=== PATIENT | female | born 1960 | race Caucasian/White ===

== ENCOUNTER 2016-06-03 19:32 | Inpatient (IN) | payer BC ==
--- NOTE | 2016-06-03 19:59 | UCPHY ---
H & P Time Seen by Provider: 06/03/16 19:58 Patient Type: New HPI/ROS: Chief complaint. Abdominal pain HPI. 48-year-old female presents with abdominal, vomiting diarrhea since last night. Slight bone stool especially when wiping her bottom after diarrhea. She tells me she is constipated for the last several weeks. She has achiness in both sides of her low abdomen. She feels weak. No fever. No chest discomfort shortness of breath. She has previously had blood in her stool and has had GI workup and was diagnosed with an ulcer. She was also seen 5 days ago for sinus infection started on Augmentin. She is visiting from [employer] Constitutional. Weakness Eyes. no problems with vision ENT. no sore throat, no nasal drainage Cardiovascular. no chest pain Respiratory. no shortness of breath, no cough Abdominal. Crampy lower abdominal pain with nausea vomiting and diarrhea. Blood that is described as bright red on toilet paper after stool . no problems urinating MS. no calf pain/swelling, no neck/back pain, no joint pain Skin. no rash Lymph. no swollen glands Neuro. no headache, no dizziness, no difficulty walking or with speech Past Medical/Surgical History: Dyslipidemia, peptic ulcer disease, IBS, hysterectomy Social History: , nonsmoker, no alcohol Physical Exam: General Appearance: Alert well-developed female mild distress vital signs are stable Eyes: Pupils equal and round no pallor or injection. ENT, Mouth: Mucous membranes are moist. Respiratory: There are no retractions, lungs are clear to auscultation. Cardiovascular: Regular rate and rhythm. Gastrointestinal: Abdomen is soft with some tenderness in the lower abdomen. No masses. Bowel sounds are normal Neurological: Awake and alert, sensory and motor exams grossly normal. Skin: Warm and dry, no rashes. Musculoskeletal: Neck is supple nontender. Extremities symmetrical, full range of motion. Psychiatric: Patient is oriented X 3, there is no agitation. Constitutional: Initial Vital Signs Temperature (C) 36.6 C 06/03/16 19:48 Heart Rate 75 06/03/16 19:48 Respiratory Rate 18 06/03/16 19:48 Blood Pressure 148/105 H 06/03/16 19:48 O2 Sat (%) 96 06/03/16 19:48 O2 Delivery Mode Room Air Allergies/Adverse Reactions: No Known Allergies Allergy (Unverified 06/03/16 19:45) Home Medications: Medication Instructions Recorded Amox-Clav 875-125 mg Tablet 06/03/16 LAMOTRIGINE 06/03/16 VENLAFAXINE HCL 06/03/16 Medical Decision Making - Diagnostics Imaging: Upright abdomen interpreted by me shows no evidence of free air or air-fluid levels. There is stool in the right ascending colon CT abdomen and pelvis with IV contrast reviewed and discussed with Dr. Villanueva shows a large area of circumferential colitis measuring 35 cm in the distal transverse and descending colon. There is circumferential wall thickening. No evidence of abscess or free air Procedures: IV normal saline. Zofran IV for nausea and vomiting. Imodium orally for diarrhea. IV Pepcid ED Course/Re-evaluation: Re-evaluation at 9:15 a.m.. Patient tells me she is having a lot of cramping and pain in her low abdomen. Morphine for pain is ordered. CT abdomen and pelvis are ordered Re-evaluation or return from CT at 10:00 p.m.. Patient is stable and feeling better. 10:15 p.m. I have discussed the imaging and laboratory findings with the patient. We discussed treatment plan including recommendation for admission. She expresses understanding and agreement I have consulted and discussed case with Dr. West, hospitalist, who agrees to the admission Differential Diagnosis: I considered appendicitis, diverticulitis, colitis - Data Points Laboratory Results: Laboratory Results 06/03/16 20:30 06/03/16 20:30 06/03/16 20:30 WBC 16.40 H 10^3/uL (3.80-9.50) RBC 4.95 10^6/uL (4.18-5.33) Hgb 14.1 g/dL (12.6-16.3) Hct 42.8 % (38.0-47.0) MCV 86.5 fL (81.5-99.8) MCH 28.5 pg (27.9-34.1) MCHC 32.9 g/dL (32.4-36.7) RDW 13.1 % (11.5-15.2) Plt Count 417 H 10^3/uL (150-400) MPV 10.1 fL (8.7-11.7) Neut % (Auto) 80.4 H % (39.3-74.2) Lymph % (Auto) 14.0 L % (15.0-45.0) [place] % (Auto) 4.9 % (4.5-13.0) Eos % (Auto) 0.2 L % (0.6-7.6) Baso % (Auto) 0.2 L % (0.3-1.7) Nucleat RBC Rel Count 0.0 % (0.0-0.2) Absolute Neuts (auto) 13.17 H 10^3/uL (1.70-6.50) Absolute Lymphs (auto) 2.30 10^3/uL (1.00-3.00) Absolute Monos (auto) 0.81 H 10^3/uL (0.30-0.80) Absolute Eos (auto) 0.04 10^3/uL (0.03-0.40) Absolute Basos (auto) 0.03 10^3/uL (0.02-0.10) Absolute Nucleated RBC 0.00 10^3/uL (0-0.01) Immature Gran % 0.3 % (0.0-1.1) Immature Gran # 0.05 10^3/uL (0.00-0.10) Sodium 142 mEq/L (134-144) Potassium 3.9 mEq/L (3.5-5.2) Chloride 102 mEq/L (97-110) Carbon Dioxide 25 mEq/l (22-31) Anion Gap 15 mEq/L (8-16) BUN 12 mg/dL (7-23) Creatinine 0.9 mg/dL (0.6-1.0) Estimated GFR > 60 Glucose 106 H mg/dL (70-100) Calcium 9.6 mg/dL (8.5-10.4) Medications Given: Discontinued Medications Sodium Chloride (Ns) 1,000 mls @ 0 mls/hr IV ONCE ONE PRN Reason: Wide Open Stop: 06/03/16 20:09 Last Admin: 06/03/16 21:06 Dose: 1,000 mls Famotidine 20 mg/ Sodium (Chloride) 102 mls @ 408 mls/hr IV EDNOW ONE Stop: 06/03/16 20:22 Last Admin: 06/03/16 21:04 Dose: 102 mls Loperamide HCl (Imodium) 4 mg PO EDNOW ONE Stop: 06/03/16 20:10 Last Admin: 06/03/16 21:06 Dose: 4 mg Morphine Sulfate (Morphine) 6 mg IVP EDNOW ONE Stop: 06/03/16 21:18 Last Admin: 06/03/16 21:29 Dose: 6 mg Ondansetron HCl (Zofran) 4 mg IVP EDNOW ONE Stop: 06/03/16 20:09 Last Admin: 06/03/16 21:06 Dose: 4 mg Departure - Departure Disposition: [facility] Inpatient Acute Clinical Impression: Non-specific colitis Condition: Fair - PQRS PQRS Measurement: 134: Depression screening and followup, PRIME MD-PHQ2 (12 years and older) Over the last 2 weeks, how often have you been bothered by any of the following problems? 1. Feeling down, depressed, or hopeless? 2. Little interest or pleasure in doing things? Patient answered no to both 1 and 2 130: Documentation of medications. Reviewed all patient medications, doses, route and frequency. 226: Do you smoke? No.
[2016-06-03] MEDS ORDERED: FAMOTIDINE 20 MG in NS 100 ML IV ONE (20:08)
[2016-06-03] MEDS ORDERED: NS 1,000 ML IV ONE (20:08)
[2016-06-03] MEDS ORDERED: ONDANSETRON 4 MG/2 ML VIAL IVP ONE (20:08)
[2016-06-03] MEDS ORDERED: LOPERAMIDE HCL 2 MG CAP PO ONE (20:09)
--- NOTE | 2016-06-03 20:31 | DX ---
Single view abdomen 2015 hour History: Abdominal pain, nausea. Findings: Upright view abdomen demonstrates moderate stool in the right colon. No bowel obstruction. No significant air-fluid levels. Calcifications in the region of the pancreas. No organomegaly. Impression: 1. Mild constipation. 2. No bowel obstruction or pneumoperitoneum. 3. Pancreatic calcifications suggesting chronic pancreatitis.
[2016-06-03 20:43] LABS: % IMMATURE GRANULYOCYTES 0.3 % (0.0-1.1); ABSOLUTE IMMATURE GRANULOCYTES 0.05 10^3/uL (0.00-0.10); ADD DIFF? NO; ADD MORPH? NO; ADD SCAN? NO; ATYPICAL LYMPHOCYTE FLAG 0 (0-99); FRAGMENT RBC FLAG 0 (0-99); HEMATOCRIT 42.8 % (38.0-47.0); HEMOGLOBIN 14.1 g/dL (12.6-16.3); LEFT SHIFT FLG 0 (0-99); LIPEMIA HEMOLYSIS FLAG 80 (0-99); MEAN CELL HEMOGLOBIN 28.5 pg (27.9-34.1); MEAN CELL HEMOGLOBIN CONCENTR. 32.9 g/dL (32.4-36.7); MEAN CELL VOLUME 86.5 fL (81.5-99.8); MEAN PLATELET VOLUME 10.1 fL (8.7-11.7); PLATELET CLUMPS FLAG 0 (0-99); PLATELET COUNT 417 10^3/uL (150-400); RED BLOOD CELL COUNT 4.95 10^6/uL (4.18-5.33); RED CELL DISTRIBUTION WIDTH 13.1 % (11.5-15.2)
[2016-06-03] MEDS ORDERED: NS 100 ML BAG IV ONE (20:46)
[2016-06-03 20:54] LABS: ANION GAP 15 mEq/L (8-16); CALCIUM 9.6 mg/dL (8.5-10.4); CARBON DIOXIDE 25 mEq/l (22-31); CHLORIDE 102 mEq/L (97-110); CREATININE 0.9 mg/dL (0.6-1.0); GLOMERULAR FILTRATION RATE > 60; GLUCOSE 106 mg/dL (70-100); POTASSIUM 3.9 mEq/L (3.5-5.2); SODIUM 142 mEq/L (134-144)
[2016-06-03] MEDS ORDERED: IOPAMIDOL (ISOVUE-300) 100 ML BTL IV ONE (21:21)
--- NOTE | 2016-06-03 22:15 | CT ---
CT Scan of the Abdomen and Pelvis (With Contrast) 2145 hours History: Lower abdominal pain. Technique: Axial computed tomographic images of the abdomen and pelvis were obtained with the unevent ful intravenous administration of 90 mL Isovue-300 contrast. No oral or rectal contrast which limits the study. Dose reduction techniques were utilized. CT Abdomen Findings: Lung bases: Normal. Liver: Normal. Biliary system: No obstruction. Spleen: Normal. Pancreas: Normal. Adrenals: Calcification nodular thickening of the right adrenal gland is nodular thickening left adre nal gland probably benign. Kidneys: No obstruction or solid masses. Abdominal Aorta: No aneurysm. Circumferential wall thickening of the distal transverse and descending colon extending for least 35 cm probably representing infectious/inflammatory colitis versus or bulge of colitis. No drainable abs cess or bowel obstruction. Superior mesenteric artery and inferior mesenteric artery appear patent. N o pneumoperitoneum. CT Pelvis Findings: Appendix appears normal without inflammatory changes. Rectosigmoid colon appears normal. Moderate degenerative disk disease lumbar spine L4-L5 through Impression: 1. Circumferential wall thickening of the distal transverse and descending colon probably representin g infectious/inflammatory colitis versus ulcerative colitis . Recommend followup colonoscopy. Ischemi c colitis is less likely. 2. Calcification and nodular thickening of right adrenal gland probably from prior trauma or benign p rocess. 3. No evidence of appendicitis. Findings and recommendations discussed with Emergency Department physician, Dr. Morris Lamb at 2205 hour, today. Final report concurs with initial preliminary interpretation.
[2016-06-04] MEDS ORDERED: ONDANSETRON 4 MG/2 ML VIAL IVP PRN (00:07)
[2016-06-04] MEDS ORDERED: LORazepam 0.5 MG TAB PO PRN (00:07)
[2016-06-04] MEDS ORDERED: ONDANSETRON DISINTEGRATING 4 MG TAB PO PRN (00:07)
[2016-06-04] MEDS ORDERED: HYDROCODONE/APAP 5/325 TAB PO PRN (00:07)
[2016-06-04] MEDS: NS 1,000 ML IV SCH ×3 (00:56→23:50)
[2016-06-04] MEDS: CIPROFLOXACIN 400 MG/DEXTROSE 200 ML IV SCH ×2 (00:57→12:58)
[2016-06-04] MEDS: PANTOPRAZOLE SODIUM 40 MG in NS 100 ML IV SCH ×2 (00:58→10:41)
--- NOTE | 2016-06-04 01:28 | PDGENHP ---
History and Physical - Chief Complaint bloody diarrhea - History of Present Illness Patient is a 48-year-old female with history of depression, hyperlipidemia who presents to the [facility] complaining of abdominal cramping and diarrhea. Patient states that at around 2:00 a.m. on 06/03 she woke with intense cramping along her lower abdomen and urgency to have a bowel movement. She received have a bowel movement which she describes as initially firm followed by soft and then diarrheal stool. Toward the end of her bowel movements still became lined with small amounts of bright red blood. The cramping continued throughout the night and she had 3 additional bloody diarrheal stools until about 7:00 a.m. on 06/03. Since then she has not had a repeat bowel movement, but continues to have cramping abdominal pain. On day of presentation she has been unable to take any p.o. intake due to nausea, but denies any vomiting. She also reports subjective chills throughout the day. Of note patient was recently diagnosed with sinusitis and was started on Augmentin on 05/29 and had been taking that until it yesterday. She does report being told in young adulthood that she had IBS, but states this had been a problem for in many years. Last colonoscopy was about 3 years ago and normal. She does also have a history of upper GI bleed due to peptic ulcer disease about 2 years ago, but has not had any problems since that time. On arrival to the Urgent Care, patient had a low-grade temperature but was hemodynamically stable. Labs revealed leukocytosis, normal BMP. CT abdomen and pelvis was obtained and revealed colitis of the distal transverse and descending colon. Pt was then transferred to [facility] for admission. History Information - Allergies/Home Medication List Allergies/Adverse Reactions: No Known Allergies Allergy (Unverified 06/03/16 19:45) Home Medications: Amox-Clav 875-125 mg Tablet 06/03/16 [Last Taken Unknown] LAMOTRIGINE 06/03/16 [Last Taken Unknown] VENLAFAXINE HCL 06/03/16 [Last Taken Unknown] I have personally reviewed and updated: family history, medical history, social history, surgical history - Past Medical History Additional medical history: Depression (well controlled). HLD - Surgical History Additional surgical history: hysterectomy. appendectomy - Family History Positive for: non-pertinent (pt adopted) - Social History Smoking Status: Never smoked Alcohol Use: None Drug Use: None Additional social history: Patient is originally from [place] [facility], currently lives in [place] [facility]. Has been visiting her daughter here in [place] for past 2 weeks. Is retired. Review of Systems ROS: 10pt was reviewed & negative except for what was stated in HPI & below Physical Exam Temp Pulse Resp BP Pulse Ox 36.9 C 81 16 132/83 H 94 06/03/16 23:32 06/03/16 23:32 06/03/16 23:32 06/03/16 23:32 06/03/16 23:32 O2 (L/minute) 2 Constitutional: no apparent distress, appears nourished, not in pain Eyes: PERRL, anicteric sclera, EOMI Ears, Nose, Mouth, Throat: hearing normal, ears appear normal, no oral mucosal ulcers, dry mucous membranes Cardiovascular: regular rate and rhythym, no murmur, rub, or gallop, pulses symmetric bilaterally, No JVD, No edema Peripheral Pulses: 2+: dorsalis-pedis (R), dorsalis-pedis (L) Respiratory: no respiratory distress, no rales or rhonchi, clear to auscultation Gastrointestinal: normoactive bowel sounds, no palpable masses, other (soft, slight tenderness to palpation in suprapubic/LUQ), No guarding, No rebound Genitourinary: no bladder fullness, no bladder tenderness Skin: warm, normal color, no rashes or abrasions, no fluctuance, no induration, No mottled Musculoskeletal: full muscle strength, no muscle tenderness, normal joint ROM, no joint effusions Neurologic: AAOx3, sensation intact bilaterally, CN II-XII Intact, No weakness, No numbness Psychiatric: interacting appropriately, not anxious, not encephalopathic, thought process linear Lab Data & Imaging Review 06/03/16 20:30 06/03/16 20:30 WBC 16.40 10^3/uL (3.80-9.50) H 06/03/16 20:30 RBC 4.95 10^6/uL (4.18-5.33) 06/03/16 20:30 Hgb 14.1 g/dL (12.6-16.3) 06/03/16 20:30 Hct 42.8 % (38.0-47.0) 06/03/16 20:30 MCV 86.5 fL (81.5-99.8) 06/03/16 20:30 MCH 28.5 pg (27.9-34.1) 06/03/16 20:30 MCHC 32.9 g/dL (32.4-36.7) 06/03/16 20:30 RDW 13.1 % (11.5-15.2) 06/03/16 20:30 Plt Count 417 10^3/uL (150-400) H 06/03/16 20:30 MPV 10.1 fL (8.7-11.7) 06/03/16 20:30 Neut % (Auto) 80.4 % (39.3-74.2) H 06/03/16 20:30 Lymph % (Auto) 14.0 % (15.0-45.0) L 06/03/16 20:30 [place] % (Auto) 4.9 % (4.5-13.0) 06/03/16 20:30 Eos % (Auto) 0.2 % (0.6-7.6) L 06/03/16 20:30 Baso % (Auto) 0.2 % (0.3-1.7) L 06/03/16 20:30 Nucleat RBC Rel Count 0.0 % (0.0-0.2) 06/03/16 20:30 Absolute Neuts (auto) 13.17 10^3/uL (1.70-6.50) H 06/03/16 20:30 Absolute Lymphs (auto) 2.30 10^3/uL (1.00-3.00) 06/03/16 20:30 Absolute Monos (auto) 0.81 10^3/uL (0.30-0.80) H 06/03/16 20:30 Absolute Eos (auto) 0.04 10^3/uL (0.03-0.40) 06/03/16 20:30 Absolute Basos (auto) 0.03 10^3/uL (0.02-0.10) 06/03/16 20:30 Absolute Nucleated RBC 0.00 10^3/uL (0-0.01) 06/03/16 20: Immature Gran % 0.3 % (0.0-1.1) 06/03/16 20:30 Immature Gran # 0.05 10^3/uL (0.00-0.10) 06/03/16 20:30 Sodium 142 mEq/L (134-144) 06/03/16 20:30 Potassium 3.9 mEq/L (3.5-5.2) 06/03/16 20:30 Chloride 102 mEq/L (97-110) 06/03/16 20:30 Carbon Dioxide 25 mEq/l (22-31) 06/03/16 20:30 Anion Gap 15 mEq/L (8-16) 06/03/16 20:30 BUN 12 mg/dL (7-23) 06/03/16 20:30 Creatinine 0.9 mg/dL (0.6-1.0) 06/03/16 20:30 Estimated GFR > 60 06/03/16 20:30 Glucose 106 mg/dL (70-100) H 06/03/16 20:30 Calcium 9.6 mg/dL (8.5-10.4) 06/03/16 20:30 Visualized and Interpreted imaging results: Yes Interpretation: CT abd/pelvis: colitis of distal transverse and descending colon Assessment & Plan Assessment: Patient is a 56-year-old female with a history hyperlipidemia who presents to the ED with abdominal pain, bloody diarrhea after recent antibiotic use. CT abdomen and pelvis reveals acute colitis, likely infectious in etiology. Plan: # acute colitis Etiology likely infectious given leukocytosis, low-grade temp and given patient' s recent antibiotic use, C diff colitis is on the differential. Patient has not had repeat bowel movement since 06/03. Will obtained next possible stool sample and start antibiotics. - contact precautions - check c diff, stool O/P, stool culture - start Cipro 400 mg q12h, Metronidazole 500 mg q8h - IVF hydration: NS @100 cc/hr - anti-emetics prn, PPI # HLD Confirm and cont home meds. # depression Stable. Cont home meds. # dispo: admit to inpt service for > 2 [place] stay # gen clear liquid diet DVT ppx: SCDs Full code
[2016-06-04 05:42] LABS: % IMMATURE GRANULYOCYTES 0.4 % (0.0-1.1); ABSOLUTE IMMATURE GRANULOCYTES 0.06 10^3/uL (0.00-0.10); ADD DIFF? NO; ADD MORPH? NO; ADD SCAN? NO; ATYPICAL LYMPHOCYTE FLAG 10 (0-99); FRAGMENT RBC FLAG 0 (0-99); HEMATOCRIT 39.1 % (38.0-47.0); HEMOGLOBIN 12.6 g/dL (12.6-16.3); LEFT SHIFT FLG 10 (0-99); LIPEMIA HEMOLYSIS FLAG 80 (0-99); MEAN CELL HEMOGLOBIN 28.8 pg (27.9-34.1); MEAN CELL HEMOGLOBIN CONCENTR. 32.2 g/dL (32.4-36.7); MEAN CELL VOLUME 89.5 fL (81.5-99.8); MEAN PLATELET VOLUME 10.1 fL (8.7-11.7); PLATELET CLUMPS FLAG 0 (0-99); PLATELET COUNT 302 10^3/uL (150-400); RED BLOOD CELL COUNT 4.37 10^6/uL (4.18-5.33); RED CELL DISTRIBUTION WIDTH 13.1 % (11.5-15.2)
[2016-06-04 05:47] LABS: COLOR PALE YELLOW; LEUKOCYTE ESTERASE,URINE NEGATIVE (NEGATIVE); NITRITE,URINE NEGATIVE (NEGATIVE)
[2016-06-04 05:55] LABS: ALANINE AMINOTRANSFERASE 30 IU/L (9-52); ALBUMIN 3.3 g/dL (3.5-5.0); ALKALINE PHOSPHATASE 61 IU/L (38-126); ANION GAP 11 mEq/L (8-16); ASPARTATE AMINOTRANSFERASE 19 IU/L (14-46); BILIRUBIN,TOTAL 0.6 mg/dL (0.1-1.4); CALCIUM 8.5 mg/dL (8.5-10.4); CARBON DIOXIDE 25 mEq/l (22-31); CHLORIDE 107 mEq/L (97-110); CREATININE 0.8 mg/dL (0.6-1.0); GLOMERULAR FILTRATION RATE > 60; GLUCOSE 98 mg/dL (70-100); MAGNESIUM 2.1 mg/dL (1.6-2.3); POTASSIUM 3.7 mEq/L (3.5-5.2); SODIUM 143 mEq/L (134-144)
[2016-06-04 06:07] LABS: INR 1.05 (0.83-1.16); PROTIME(PATIENT) 13.6 SEC (12.0-15.0)
[2016-06-04 06:08] LABS: APTT 30.9 SEC (23.0-38.0)
--- NOTE | 2016-06-04 10:10 | HOSPPROG ---
Hospitalist Progress Note Assessment/Plan: Assessment: Patient is a 56-year-old female with a history hyperlipidemia who presents to the ED with abdominal pain, bloody diarrhea after recent antibiotic use. CT abdomen and pelvis reveals acute colitis, likely infectious in etiology. Plan: # acute colitis likely infectious given leukocytosis, low-grade temp and given patient's recent antibiotic use, C diff colitis is on the differential. No BM since admission -DC empiric antibiotics -await stool studies # HLD Confirm and cont home meds. # depression Stable. Cont home meds. # dispo: admit to inpt service for > 2 [place] stay # gen clear liquid diet DVT ppx: SCDs Full code Subjective: no bm since admission. afraid to eat. reports abd discomfort. no fever or chills Objective: Vital Signs Temp Pulse Resp BP Pulse Ox 36.8 C 85 16 113/67 97 06/04/16 08:17 06/04/16 08:17 06/04/16 08:17 06/04/16 08:17 06/04/16 08:17 Laboratory Results 06/04/16 05:16 06/04/16 05:16 06/03/16 06/04/16 06/05/16 05:59 05:59 05:59 Intake Total 2100 Output Total 600 Balance 1500 PT 13.6 SEC (12.0-15.0) 06/04/16 05:16 INR 1.05 (0.83-1.16) 06/04/16 05:16 ct scan abd/pelvis reviewed - Physical Exam Constitutional: no apparent distress, appears nourished, not in pain Ears, Nose, Mouth, Throat: moist mucous membranes, hearing normal, ears appear normal, no oral mucosal ulcers Cardiovascular: regular rate and rhythym, no murmur, rub, or gallop Respiratory: no respiratory distress, no rales or rhonchi, clear to auscultation Gastrointestinal: normoactive bowel sounds, soft, non-tender abdomen, no palpable masses, No guarding, No rebound, No distension Skin: no rashes or abrasions, no fluctuance, no induration Neurologic: AAOx3, CN II-XII Intact, No facial droop ICD10 Worksheet Patient Problems: Problems Problem Status Diagnosed Colitis Acute
[2016-06-04] MEDS: VENLAFAXINE XR 150 MG CAP PO SCH (10:41)
[2016-06-04] MEDS: lamoTRIgine 100 MG TAB PO SCH (10:41)
[2016-06-04] MEDS: ACETAMINOPHEN 325 MG TAB PO PRN (17:04)
[2016-06-04] MEDS ORDERED: NON-FORMULARY NEW DRUG (Simvastatin [Zocor] 80 MG) PO SCH (21:00)
[2016-06-04] MEDS ORDERED: ATORVASTATIN CALCIUM 40 MG TAB PO SCH (21:00)
[2016-06-05 05:56] VITALS: O2SAT 92
[2016-06-05 08:21] VITALS: BP 117/80; PULSE 80; RESP 18; TEMP 98.5
[2016-06-05] MEDS: VENLAFAXINE XR 150 MG CAP PO SCH (08:35)
[2016-06-05] MEDS: lamoTRIgine 100 MG TAB PO SCH (08:35)
[2016-06-05] MEDS ORDERED: Herbals/Supplements -Info Only PO SCH (09:00)
[2016-06-05] MEDS: ACETAMINOPHEN 325 MG TAB PO PRN (09:09)
[2016-06-05] MEDS: PANTOPRAZOLE SODIUM 40 MG in NS 100 ML IV SCH (09:10)
[2016-06-05] MEDS ORDERED: DOXYCYCLINE HYCLATE 100 MG CAP/TAB PO SCH (11:30)
--- NOTE | 2016-06-05 11:50 | GDS ---
[f rep st] DISCHARGE SUMMARY DISCHARGE DIAGNOSIS: 1. Resolved diarrhea, likely due to acute colitis in the setting of adverse effect to Augmentin vers us Clostridium difficile, now resolved. 2. Hyperlipidemia. 3. Depression. 4. Acute bacterial sinusitis. HOSPITAL COURSE AND STAY, BY PROBLEM: 1. Acute colitis: The patient was admitted to the hospital, where she was initially treated with IV Cipro and metronidazole. Since being in the hospital, the patient has not had a bowel movement. Sh david is now tolerating a regular diet. She denies any abdominal pain. Stool for C difficile was ordere d, but has not been sent since the patient has not had any further bowel movements. On the morning o f 06/05/2016, the patient feels better and is agreeable to be discharged home. If she does have a st ool prior to discharge, she will need followup of her stool studies to ensure she does not have C dif ficile since she is certainly at risk being on Augmentin. 2. Acute bacterial sinusitis: The patient's antibiotics were stopped yesterday. Today, she reports worsening sinus congestion, which has been going on for about 2 weeks. She denies any fevers. She reports purulent nasal discharge. Will give her a prescription for doxycycline to be taken for [facility] er 7 days given that the Augmentin could possibly be responsible for her colitis. 3. Depression: The patient states that since being in the hospital she has felt rather down. She d enies any suicidal or homicidal ideation. DISCHARGE PHYSICAL EXAMINATION: VITAL SIGNS: Blood pressure 117/80, pulse 80, respiratory rate 18, O2 saturation 92% on room air, temperature afebrile. GENERAL: No acute distress. ABDOMEN: Soft, n ontender, nondistended. No guarding or rebound tenderness. Normoactive bowel sounds. PERTINENT LABS AND STUDIES: CT of the abdomen done 06/03/2016 revealed circumferential wall thickeni ng of the distal transverse and descending colon, probably representing infectious versus inflammator y colitis. DISCHARGE MEDICATIONS: Please refer to discharge medication reconciliation in [facility] for full deta ils. Below is a preliminary list. New medications on hospital discharge: Doxycycline 100 mg p.o. twice daily for 7 days. DISCHARGE INSTRUCTIONS: The patient will be discharged from the hospital, where she should seek [facility] attention if she continues to have diarrhea or is unable the eat. The patient is visiting and sh ould possibly follow up with a supervisor sheet manufacturing upon returning home to consider colonoscopy if her symptoms are not improving. /[id number]/MODL
[2016-06-06] MEDS ORDERED: PANTOPRAZOLE SODIUM 40 MG TAB PO SCH (09:00)
== END 2016-06-05 16:07 | disposition home or self-care (01) | DRG 392 ==
LOC: CED 19:32 → CEDHOLD 22:21 → OBSVTOIN 22:21 → F1N 23:09
PROVIDERS: ADMIT Internal Medicine; ATTEND Internal Medicine
DX: K52.9 Noninfective gastroenteritis and colitis, unspecified (principal); E78.5 Hyperlipidemia, unspecified; F32.9 Major depressive disorder, single episode, unspecified; J01.90 Acute sinusitis, unspecified
CPT/HCPCS: 74000-PO; 74177-PO; 80048-PO; 85025-PO; 96361-PO; 96365-PO; 96374-PO; 96375-PO; G0463-PO; J0744; J2405; Q9967

== ENCOUNTER 2017-11-17 17:37 | Emergency (ER) | payer BC ==
[2017-11-17] MEDS ORDERED: NS 1,000 ML IV ONE (18:16)
--- NOTE | 2017-11-17 18:16 | EDPHY ---
H & P Time Seen by Provider: 11/17/17 17:51 HPI/ROS: 57-year-old female presents complaining of fall from a [place]ock landing on the crossbar underneath the [place]ock with a direct blow to her mid back now with pain in her back and right lower back as well. No numbness or tingling in her extremities, no loss of bowel or bladder control. Review of systems As per HPI General no fever no chills no weakness HEENT no eye pain no eye discharge. No eye redness, no sore throat Respiratory no cough, no shortness of breath Cardiac no chest pain, no peripheral edema GI no abdominal pain, no diarrhea, no constipation, no nausea, no vomiting no flank pain, no hematuria, no dysuria Musculoskeletal positive myalgias, no joint pain Heme no easy bruising, no easy bleeding Endo no polyuria, no polydipsia Skin no rashes, no pruritus Neuro no syncope, no dizziness, no headaches Psych is no suicidal ideation, no homicidal ideation Past Medical/Surgical History: Depression Social History: Denies alcohol or drug use Lives near [facility] Smoking Status: Never smoked Physical Exam: 57-year-old female alert and oriented in moderate to severe distress secondary to back pain and right lower back muscle spasm Vital signs stable, afebrile Atraumatic normocephalic, Extraocular muscles intact, anicteric Mucosa moist Neck is supple no posterior cervical midline tenderness, no swelling no ecchymosis no JVD Lungs clear to auscultation bilaterally Heart regular rate and rhythm Abdomen nondistended, bowel sounds present, soft, nontender no pulsatile mass Back no step-offs Positive ecchymosis at mid back approximately T10 through L2, just to the right of midline Positive right paralumbar tenderness to palpation Extremities no cyanosis clubbing or edema Neuro Sensation intact, motor intact, deep tendon reflexes bilateral knees normal gait intact Constitutional: Initial Vital Signs Temperature (C) 36.9 C 11/17/17 17:46 Heart Rate 73 11/17/17 17:46 Respiratory Rate 18 11/17/17 17:46 Blood Pressure 140/99 H 11/17/17 17:46 O2 Sat (%) 98 11/17/17 17:46 O2 Delivery Mode Room Air Allergies/Adverse Reactions: No Known Allergies Allergy (Unverified 06/03/16 19:45) Home Medications: Medication Instructions Recorded Venlafaxine Xr [Effexor Xr 75MG 300 mg PO DAILY 06/03/16 (*)] lamoTRIgine [LamICTAL 100 MG (*)] 200 mg PO DAILY 06/03/16 Diazepam [Valium 5 MG (*)] 5 mg PO TID PRN #21 tab 11/17/17 Docusate Sodium [Colace 100 MG (*)] 100 mg PO BID #60 cap 11/17/17 Lidocaine [Lidoderm] 1 each TP DAILY 15 Days #15 11/17/17 adh..patch Risperidone 11/17/17 oxyCODONE/APAP 5/325 [Percocet 1 tab PO Q6 PRN #28 tab 11/17/17 5/325 (*)] Medical Decision Making - Diagnostics Imaging Results: Imaging Impressions Lumbar Spine CT 11/17/17 18:20 Impression: 1. Thoracic spine for fracture. 2. See above report for additional findings. CT Lumbar Spine Without Contrast History: Pain following trauma. Technique: Spiral noncontrast acquisition was performed through the lumbar spine with reformations performed at 1 mm thickness.. Soft tissue and bone window evaluation is performed. Sagittal and coronal reconstructions are obtained utilizing soft tissue and bone window computer analysis modes. Dose reduction techniques were utilized. Findings: The bone alignment is normal. Vertebral body heights are well- maintained. There is a mildly displaced fracture involving the transverse process of L1 on the right side. Additionally, there may be an essentially undisplaced fracture of the transverse process of T12. No other fracture is identified. The paravertebral soft tissues appear normal. Degenerative changes are noted with facet hypertrophy extending from L2-L3 to the L5-S1 level. Disk space loss is also noted most pronounced at L4-L5 where there is a vacuum disk phenomenon. Hypertrophic degenerative changes at the C3-C4 level result in probable borderline canal stenosis. Impression: 1. Negative for vertebral body fracture. There is a minimally displaced fracture of the right transverse process of L1 and equivocal undisplaced fracture of the transverse process of T12. 2. Multilevel degenerative changes are noted as detailed above. Results called and discussed with Yvonne Cabrales MD on 11/17/2017 at 20:15. Thoracic Spine CT 11/17/17 18:20 Impression: 1. Thoracic spine for fracture. 2. See above report for additional findings. CT Lumbar Spine Without Contrast History: Pain following trauma. Technique: Spiral noncontrast acquisition was performed through the lumbar spine with reformations performed at 1 mm thickness.. Soft tissue and bone window evaluation is performed. Sagittal and coronal reconstructions are obtained utilizing soft tissue and bone window computer analysis modes. Dose reduction techniques were utilized. Findings: The bone alignment is normal. Vertebral body heights are well- maintained. There is a mildly displaced fracture involving the transverse process of L1 on the right side. Additionally, there may be an essentially undisplaced fracture of the transverse process of T12. No other fracture is identified. The paravertebral soft tissues appear normal. Degenerative changes are noted with facet hypertrophy extending from L2-L3 to the L5-S1 level. Disk space loss is also noted most pronounced at L4-L5 where there is a vacuum disk phenomenon. Hypertrophic degenerative changes at the C3-C4 level result in probable borderline canal stenosis. Impression: 1. Negative for vertebral body fracture. There is a minimally displaced fracture of the right transverse process of L1 and equivocal undisplaced fracture of the transverse process of T12. 2. Multilevel degenerative changes are noted as detailed above. Results called and discussed with Yvonne Cabrales MD on 11/17/2017 at 20:15. ED Course/Re-evaluation: Patient seen and evaluated for back pain following a fall out of a Hammock. No neurologic deficit CT thoracic and lumbar spine- Positive transverse process fracture at T12, L1 Patient given Toradol 15 mg IV push, Fentanyl 50 mcg IVP, Normal Saline 1 liter Lidoderm patch placed Pt got marked relief from these medications though continued to have some muscle spasm right paralumbar area. Imp Transverse process fracture L1, T12 Plan Discharge home Symptomatic/supportive care Diazepam, Percocet, Lidoderm Consider TENS unit for muscle spasm f/u pcp as soon as you return to [place] Differential Diagnosis: Differential diagnosis considered but not limited to: Vertebral fracture, compression fracture, spinous process fracture, transverse process fracture, back sprain, lumbar contusion, muscle spasm - Data Points Laboratory Results: 11/17/17 18:41 POC Sodium 140 mEq/L mEq/L (135-145) POC Potassium 3.6 mEq/L mEq/L (3.3-5.0) POC Chloride 102.0 mEq/L mEq/L (97-110) POC Total CO2 27 mEq/L mEq/L (22-31) POC BUN 9 mg/dL mg/dL (7-23) POC Creatinine 1.1 mg/dL H mg/dL (0.6-1.0) POC Glucose 87 mg/dL mg/dL (70-100) POC Calcium 9.8 mg/dL mg/dL (8.5-10.4) Medications Given: Discontinued Medications Diazepam (Valium 5 Mg Prepack#4) 1 btl TAKEHOME EDNOW ONE Stop: 11/17/17 20:42 Last Admin: 11/17/17 20:55 Dose: 1 btl Fentanyl (Sublimaze) 50 mcg IVP EDNOW ONE Stop: 11/17/17 18:18 Last Admin: 11/17/17 18:40 Dose: 50 mcg Sodium Chloride (Ns) 1,000 mls @ 0 mls/hr IV ONCE ONE PRN Reason: Wide Open Stop: 11/17/17 18:17 Last Admin: 11/17/17 18:43 Dose: 1,000 mls Ketorolac Tromethamine (Toradol) 15 mg IVP EDNOW ONE Stop: 11/17/17 18:18 Last Admin: 11/17/17 18:47 Dose: 15 mg Miscellaneous Medication (Icy Hot Lidocaine/Menthol 4%/1% Patch) 1 patch TD EDNOW ONE Stop: 11/17/17 20:45 Last Admin: 11/17/17 20:57 Dose: 1 patch Oxycodone/Acetaminophen (Percocet 5/325mg Prepack#4) 1 btl TAKEHOME EDNOW ONE Stop: 11/17/17 20:41 Last Admin: 11/17/17 20:56 Dose: 1 btl Point of Care Test Results: Chemistry 11/17/17 18:41 POC Sodium 140 mEq/L mEq/L (135-145) POC Potassium 3.6 mEq/L mEq/L (3.3-5.0) POC Chloride 102.0 mEq/L mEq/L (97-110) POC Total CO2 27 mEq/L mEq/L (22-31) POC BUN 9 mg/dL mg/dL (7-23) POC Creatinine 1.1 mg/dL H mg/dL (0.6-1.0) POC Glucose 87 mg/dL mg/dL (70-100) POC Calcium 9.8 mg/dL mg/dL (8.5-10.4) Urine Dip Specific [place] (1.002-1.030) 1.015 PH (5.0-7.5) 7.0 Leukocytes (Negative) 3+ Nitrites (Negative) Negative Protein (Negative) Negative Glucose (Negative) Negative Ketones (Negative) Trace Urobilnogen (0.2-1.0 EU) 0.2 Bilirubin (Negative) Negative Blood (Negative) Negative Departure - Departure Disposition: Home, Routine, Self-Care Clinical Impression: Lumbar transverse process fracture Condition: Good Instructions: Oxycodone/Acetaminophen (By mouth), Diazepam (By mouth), Thoracolumbar Fracture (ED) Referrals: NONE *PRIMARY CARE P,. [Primary Care Provider] - As per Instructions Stand Alone Forms: Airline Excuse Prescriptions: Diazepam [Valium 5 MG (*)] 5 mg PO TID PRN #21 tab PRN Reason: Spasms Docusate Sodium [Colace 100 MG (*)] 100 mg PO BID #60 cap Lidocaine [Lidoderm] 1 each TP DAILY 15 Days #15 adh..patch oxyCODONE/APAP 5/325 [Percocet 5/325 (*)] 1 tab PO Q6 PRN #28 tab PRN Reason: Pain, Severe
[2017-11-17] MEDS ORDERED: fentaNYL 100 MCG/2 ML INJ IVP ONE (18:17)
[2017-11-17] MEDS ORDERED: KETOROLAC 15 MG/1 ML SDV IVP ONE (18:17)
[2017-11-17] MEDS ORDERED: KETOROLAC 30 MG/1 ML SDV ONE (18:35)
[2017-11-17] MEDS ORDERED: OXYCODONE/APAP 5/325MG PREPACK#4 BTL TAKEHOME ONE (20:40)
[2017-11-17] MEDS ORDERED: DIAZEPAM 5 MG PREPACK#4 BTL TAKEHOME ONE (20:41)
[2017-11-17] MEDS ORDERED: LIDOCAINE 4%/MENTHOL 1% PATCH TD ONE (20:44)
[2017-11-17] MEDS ORDERED: PATCH REMOVAL 1 EA PATCH TD SCH (21:00)
[2017-11-17 21:19] VITALS: BP 143/87
== END 2017-11-17 21:11 | disposition home or self-care (01) ==
LOC: CED 17:37
DX: S32.018A Other fracture of first lumbar vertebra, initial encounter for closed fracture (principal); W18.39XA Other fall on same level, initial encounter
CPT/HCPCS: 72128-PO; 72131-PO; 80048-PO; 96374; J1885; J3010